=== PATIENT | female | born 1995 | race African-American/Black ===

== ENCOUNTER 2020-05-08 19:50 | Day surgery (SDC) | payer OTHER ==
[2020-05-08 20:27] VITALS: BMI 35.6
[2020-05-08] MEDS ORDERED: hydrALAZINE 20 MG/ML VIAL SLOW IVP PRN (20:59)
== END 2020-05-08 21:15 | disposition home or self-care (01) ==
LOC: CSHERS 19:50
PROVIDERS: ATTEND Family Medicine
DX: O36.8130 Decreased fetal movements, third trimester, not applicable or unspecified (principal); Z3A.38 38 weeks gestation of pregnancy
CPT/HCPCS: 99282

== ENCOUNTER 2020-05-15 04:55 | Inpatient (IN) | payer OTHER ==
[2020-05-15 05:24] VITALS: BMI 36.2
[2020-05-15] MEDS ORDERED: Famotidine/PF 20 mg/2ml Vial SLOW IVP PRN (05:27)
[2020-05-15] MEDS ORDERED: Promethazine HCl 25 MG/ML VIAL IM PRN ×2 (05:27→11:18)
[2020-05-15] MEDS ORDERED: Bicitra 30 ML UDCUP PO PRN (05:27)
[2020-05-15] MEDS ORDERED: Ondansetron PF 4 MG/2 ML Vial IVP PRN ×3 (05:27→12:11)
[2020-05-15] MEDS ORDERED: hydrALAZINE 20 MG/ML VIAL SLOW IVP PRN ×2 (05:27→12:11)
[2020-05-15] MEDS ORDERED: CEFAZOLIN 2 GM in Premix Bag 1 BAG IVPB SCH (05:30)
[2020-05-15] MEDS: Lactated Ringer's 1,000 ML IV SCH ×3 (06:16→20:36)
[2020-05-15 06:27] LABS: Hemoglobin 10.7 g/dL (12.0-15.5); Mean Corpuscular Hemoglobin 27.1 pg (27.0-33.0); Mean Corpuscular Volume 84.6 fl (81.6-98.3); Mean Platelet Volume 10.2 fl (7.4-10.4); Platelet Count 167 10x3/uL (150-450); RBC Distribution Width 15.9 % (11.5-14.5); Red Blood Cell (RBC) Count 3.95 10x6/uL (3.90-5.03); White Blood Cell (WBC) Count 7.8 10x3/uL (3.5-10.5)
[2020-05-15 07:12] LABS: Syphilis Antibody Nonreactive (Nonreactive); Syphilis Antibody Index 0.05 S/CO (<1.00 Non-Reactive)
[2020-05-15 07:13] LABS: Hep B Surf Ag Non-Reactive S/CO (NonReactive)
[2020-05-15] MEDS ORDERED: Ketorolac Tromethamine 30 MG/ML VIAL ONE (07:16)
[2020-05-15] MEDS ORDERED: Morphine PF 10 MG/10 ML VIAL ONE (07:16)
[2020-05-15] MEDS ORDERED: ePHEDrine Sulfate 50 MG/10 ML VIAL ONE (07:16)
[2020-05-15] MEDS ORDERED: Phenylephrine 10 MG/ML VIAL ONE (07:17)
[2020-05-15] MEDS ORDERED: Oxytocin 10 UNITS/ML VIAL ONE (07:17)
[2020-05-15] MEDS ORDERED: Ondansetron PF 4 MG/2 ML Vial ONE (07:17)
[2020-05-15] MEDS ORDERED: Dexamethasone 4 mg/ml Vial ONE (07:17)
[2020-05-15 07:34] LABS: HBSAg Index 0.26 S/CO (0-0.99)
[2020-05-15] MEDS ORDERED: Midazolam HCl 2 mg/2 ml Vial ONE (09:08)
[2020-05-15] MEDS ORDERED: Misoprostol 200 MCG TAB ONE (09:46)
[2020-05-15] MEDS: metroNIDAZOLE 500 MG in Premix Bag 1 BAG IVPB SCH ×2 (11:05→20:34)
[2020-05-15] MEDS ORDERED: Naloxone HCl 0.4 mg/ml Vial IVP PRN ×2 (11:18)
[2020-05-15] MEDS ORDERED: diphenhydrAMINE 50 MG/ML VIAL IVP PRN (11:18)
[2020-05-15] MEDS ORDERED: Ketorolac Tromethamine 30 MG/ML VIAL IVP PRN (11:18)
[2020-05-15] MEDS ORDERED: Naloxone HCl 0.4 mg/ml Vial IV PRN (11:18)
[2020-05-15] MEDS ORDERED: Promethazine HCl 25 MG SUPP PR PRN (11:18)
[2020-05-15] MEDS ORDERED: Communication Order-Pharmacy FS SCH (11:30)
[2020-05-15] MEDS ORDERED: Adacel (T-DAP) 0.5 ML SYRINGE IM ONE (12:11)
[2020-05-15] MEDS ORDERED: Lanolin Ointment 7 GM TUBE TOP PRN (12:11)
[2020-05-15] MEDS ORDERED: Lactated Ringer's 1,000 ML IV SCH (12:11)
[2020-05-15] MEDS ORDERED: Bisacodyl 10 MG SUPP PR PRN (12:11)
[2020-05-15] MEDS ORDERED: Simethicone Chewable 80 MG TAB PO PRN (12:11)
[2020-05-15] MEDS ORDERED: NS / Oxytocin 40 units/1000ml 1,000 ML IV SCH (12:11)
[2020-05-15] MEDS ORDERED: Morphine 4 MG/ML VIAL ONE (12:31)
[2020-05-15] MEDS ORDERED: Morphine 4 MG/ML VIAL SLOW IVP SCH (12:45)
[2020-05-15] MEDS: CEFAZOLIN 2 GM in Premix Bag 1 BAG IVPB SCH ×2 (14:31→22:19)
[2020-05-15 17:26] LABS: Hemoglobin 5.3 g/dL (12.0-15.5); Mean Corpuscular HGB CONC 32.3 g/dL (32.0-36.0); Mean Corpuscular Hemoglobin 27.5 pg (27.0-33.0); Mean Platelet Volume 10.5 fl (7.4-10.4); Platelet Count 76 10x3/uL (150-450); RBC Distribution Width 15.8 % (11.5-14.5); Red Blood Cell (RBC) Count 1.93 10x6/uL (3.90-5.03); White Blood Cell (WBC) Count 7.7 10x3/uL (3.5-10.5)
[2020-05-15] MEDS: diphenhydrAMINE 25 MG CAP PO PRN (20:09)
[2020-05-15] MEDS: Ketorolac Tromethamine 30 MG/ML VIAL IVP SCH (20:49)
[2020-05-15] MEDS: Ferrous Sulfate 325 MG TAB PO SCH (22:23)
[2020-05-15] MEDS: Docusate Calcium (SURFAK) 240 MG CAP PO SCH (22:23)
[2020-05-15 22:29] LABS: Hemoglobin 11.1 g/dL (12.0-15.5); Mean Corpuscular Hemoglobin 27.3 pg (27.0-33.0); Mean Corpuscular Volume 82.8 fl (81.6-98.3); Mean Platelet Volume 9.7 fl (7.4-10.4); Platelet Count 142 10x3/uL (150-450); RBC Distribution Width 16.2 % (11.5-14.5); Red Blood Cell (RBC) Count 4.06 10x6/uL (3.90-5.03); White Blood Cell (WBC) Count 12.9 10x3/uL (3.5-10.5)
[2020-05-15] MEDS ORDERED: HYDROcodone/Acetaminophen 5/325 mg Tablet PO PRN (23:30)
[2020-05-15] MEDS ORDERED: Meperidine HCl/PF 25 MG/ML VIAL IM PRN (23:30)
[2020-05-16] MEDS: Ketorolac Tromethamine 30 MG/ML VIAL IVP SCH (03:04)
[2020-05-16] MEDS: diphenhydrAMINE 25 MG CAP PO PRN ×2 (03:04→12:25)
[2020-05-16] MEDS: metroNIDAZOLE 500 MG in Premix Bag 1 BAG IVPB SCH ×2 (04:39→22:12)
[2020-05-16] MEDS: CEFAZOLIN 2 GM in Premix Bag 1 BAG IVPB SCH ×3 (06:32→22:08)
[2020-05-16 07:08] LABS: Hemoglobin 10.2 g/dL (12.0-15.5); Mean Corpuscular HGB CONC 32.7 g/dL (32.0-36.0); Mean Corpuscular Hemoglobin 26.9 pg (27.0-33.0); Mean Corpuscular Volume 82.3 fl (81.6-98.3); Mean Platelet Volume 10.2 fl (7.4-10.4); Platelet Count 134 10x3/uL (150-450); RBC Distribution Width 16.5 % (11.5-14.5); Red Blood Cell (RBC) Count 3.79 10x6/uL (3.90-5.03); White Blood Cell (WBC) Count 11.1 10x3/uL (3.5-10.5)
[2020-05-16] MEDS: Prenatal Vitamin 1 TAB PO SCH (09:28)
[2020-05-16] MEDS: HYDROcodone/Acetaminophen 5/325 mg Tablet PO PRN ×2 (09:28→20:40)
[2020-05-16] MEDS: Docusate Calcium (SURFAK) 240 MG CAP PO SCH ×2 (09:28→20:41)
[2020-05-16] MEDS ORDERED: metroNIDAZOLE 500 MG in Premix Bag 1 BAG IVPB SCH (16:00)
[2020-05-16] MEDS: Ibuprofen 800 MG TAB PO SCH ×2 (16:35→20:41)
[2020-05-17] MEDS: CEFAZOLIN 2 GM in Premix Bag 1 BAG IVPB SCH ×3 (05:35→22:14)
[2020-05-17] MEDS: Ibuprofen 800 MG TAB PO SCH ×3 (05:35→22:14)
[2020-05-17] MEDS: metroNIDAZOLE 500 MG in Premix Bag 1 BAG IVPB SCH ×3 (05:40→22:15)
[2020-05-17] MEDS: Ferrous Sulfate 325 MG TAB PO SCH (09:07)
[2020-05-17] MEDS: Prenatal Vitamin 1 TAB PO SCH (09:08)
[2020-05-17] MEDS: Docusate Calcium (SURFAK) 240 MG CAP PO SCH ×2 (09:08→22:14)
[2020-05-17 11:00] VITALS: TEMP 97.5
[2020-05-17 15:42] VITALS: BP 114/63
[2020-05-18] MEDS: Ibuprofen 800 MG TAB PO SCH (06:02)
[2020-05-18] MEDS: metroNIDAZOLE 500 MG in Premix Bag 1 BAG IVPB SCH (06:03)
[2020-05-18] MEDS: CEFAZOLIN 2 GM in Premix Bag 1 BAG IVPB SCH (06:03)
[2020-05-18] MEDS: Prenatal Vitamin 1 TAB PO SCH (09:09)
[2020-05-18] MEDS: HYDROcodone/Acetaminophen 5/325 mg Tablet PO PRN (09:09)
[2020-05-18] MEDS: Docusate Calcium (SURFAK) 240 MG CAP PO SCH (09:09)
[2020-05-18] MEDS: Ferrous Sulfate 325 MG TAB PO SCH (09:12)
== END 2020-05-18 12:35 | disposition home or self-care (01) | DRG 787 ==
LOC: CSHLD 04:55 → CSHPED 05-16 12:35
PROVIDERS: ADMIT Family Medicine; ATTEND Family Medicine
PROC: 10D00Z1 Extraction of Products of Conception, Low, Open Approach (ICD-10-PCS; principal; 2020-05-15)
PROC: 30233K1 Transfusion of Nonautologous Frozen Plasma into Peripheral Vein, Percutaneous Approach (ICD-10-PCS; 2020-05-15)
PROC: 30233N1 Transfusion of Nonautologous Red Blood Cells into Peripheral Vein, Percutaneous Approach (ICD-10-PCS; 2020-05-15)
PROC: 30233R1 Transfusion of Nonautologous Platelets into Peripheral Vein, Percutaneous Approach (ICD-10-PCS; 2020-05-15)
DX: O34.211 Maternal care for low transverse scar from previous cesarean delivery (principal); O72.1 Other immediate postpartum hemorrhage; Z3A.39 39 weeks gestation of pregnancy; Z37.0 Single live birth; Z20.822 Contact with and (suspected) exposure to COVID-19; O99.02 Anemia complicating childbirth; D64.9 Anemia, unspecified
CPT/HCPCS: 36415; 36430; 51702; 85027; 86780; 86850; 86900; 86901; 86922; 87340; J0690; J1100; J1885; J2250; J2270; J2370; J2405; P9016; P9035; P9059; Q0163

== ENCOUNTER 2022-09-23 15:02 | Emergency (ER) | payer OTHER ==
[2022-09-23 16:03] LABS: Bilirubin Neg (Negative); Blood, Urine Negative (Negative); Clarity Clear (Clear); Glucose, Urine (Dipstick) Normal (Negative); Ketone, Urine Negative (Negative); Leukocyte 100 (Negative); Nitrite Negative (Negative); Protein, Urine (Dipstick) 30 mg/dl (Neg-Trace); Specific Gravity, Urine 1.025 (1.005-1.030); Urobilinogen Normal mg/dL (Less than 2)
[2022-09-23 16:14] LABS: Bacteria/HPF 1+ HPF (None Seen); CAUTI Indications for Culture Dysuria,urgency,freq; RBC/HPF 0-3 HPF (0-3)
[2022-09-23 16:16] LABS: Urine Culture Reflex Yes Yes
== END 2022-09-23 17:11 | disposition home or self-care (01) ==
LOC: CSHERS 15:02
DX: N76.0 Acute vaginitis (principal); H10.9 Unspecified conjunctivitis
CPT/HCPCS: 81001; 87086; 87480; 87510; 87660; 99283

== ENCOUNTER 2023-08-23 18:29 | Emergency (ER) | payer SELFPAY ==
[2023-08-23 19:36] LABS: Bilirubin Neg (Negative); Blood, Urine Negative (Negative); Clarity Slightly Cloudy (Clear); Glucose, Urine (Dipstick) Normal (Negative); Ketone, Urine 5 mg/dL (Negative); Leukocyte 25 (Negative); Nitrite Negative (Negative); Protein, Urine (Dipstick) 15 mg/dl (Neg-Trace); Urobilinogen Normal mg/dL (Less than 2)
[2023-08-23 19:37] LABS: Pregnancy Test - Urine (BHCG) Negative (Negative); Pregu Control Background? CLEAR/WHITE (CLR/WHITE); Pregu Control Bar Appear? YES (CONTROL BAR)
[2023-08-23 19:44] LABS: CAUTI Indications for Culture Pelvic or flank pain; WBC/HPF 0-3 HPF (0-3)
[2023-08-23 19:45] LABS: Bacteria/HPF 2+ HPF (None Seen); Mucous/LPF 2+ LPF (<2+); RBC/HPF 0-3 HPF (0-3)
[2023-08-23 19:47] LABS: Urine Culture Reflex No No
[2023-08-23] MEDS ORDERED: Lidocaine 1% PF 5 ML VIAL ONE (20:08)
[2023-08-23] MEDS ORDERED: Azithromycin 250 MG TAB ONE (20:08)
[2023-08-23] MEDS ORDERED: cefTRIAXone (ROCEPHIN) 500 MG VIAL ONE (20:09)
[2023-08-23] MEDS ORDERED: Ondansetron ODT 4 MG TAB ONE (20:25)
[2023-08-24 16:41] LABS: Chlamydia by PCR, Vaginal Swab Not Detected (NotDetected); GC by PCR, Vaginal Swab Not Detected (NotDetected); Tric.vaginalis PCR,Vaginal Sw Not Detected (NotDetected)
== END 2023-08-23 20:24 | disposition home or self-care (01) ==
LOC: CSHERS 18:29
DX: N39.0 Urinary tract infection, site not specified (principal); B35.4 Tinea corporis; Z20.818 Contact with and (suspected) exposure to other bacterial communicable diseases; Z55.6 Problems related to health literacy
CPT/HCPCS: 81001; 81025; 87491; 87591; 87661; 96372; 99283; J0696; Q0162